=== PATIENT | female | born 1990 | race Hispanic/Latino ===

== ENCOUNTER 2018-04-19 20:54 | Emergency (ER) | payer OTHER ==
[~2018-04-19] VITALS: Ht 160 cm; Wt 83.0 kg
[2018-04-20] MEDS ORDERED: KETOROLAC TROMETHAMINE 60 MG/2 ML VIAL IM ONE (01:45)
[2018-04-20] MEDS ORDERED: DIAZEPAM 2 MG TAB PO ONE (02:15)
--- NOTE | 2018-04-20 02:36 | Diagnostic Imaging Report ---
EXAMINATION: CHEST SINGLE (PORTABLE) INDICATION: Chest pain. COMPARISON: None FINDINGS: TUBES and LINES: None. LUNGS: Lungs are well inflated. Lungs are clear. There is no evidence of pneumonia or pulmonary edema. PLEURA: No pleural effusion or pneumothorax. HEART AND MEDIASTINUM: The cardiomediastinal silhouette is unremarkable. BONES AND SOFT TISSUES: No acute osseous lesion. Soft tissues are unremarkable. UPPER ABDOMEN: No free air under the diaphragm. IMPRESSION: No acute thoracic abnormality. Signed by: Dr. Anjum Mack M.D. on 04/20/2018 2:33 AM
[2018-04-20 05:10] VITALS: BP 115/73
== END 2018-04-20 03:55 | disposition home or self-care (01) ==
LOC: ER 20:54
DX: F41.1 Generalized anxiety disorder (principal)
CPT/HCPCS: 71045; 93005; 96372; 99283; J1885